=== PATIENT | female | born 1940 | race Caucasian/White ===

== ENCOUNTER 2018-11-05 06:04 | Day surgery (SDC) | payer MEDICARE ==
[~2018-11-05] VITALS: Ht 154.9 cm; Wt 93.4 kg
[~2018-11-05 06:04] MED LIST: ALLEGRA180 MG PO; BIOTIN MAXI10000 MC1; CALCIUM 600 + D1 TAB; CALCIUM/D600 M2 PO; CARVEDILOL3.125 MG PO; FERREX 150150 MG PO; LEXAPRO5 MG PO; LOSARTAN POT50 MG PO; MULTI VIT PO; NEURONTIN600 MG PO; PANTOPRAZOLE SO40 MG PO; SIMVASTATIN40 MG PO; TRAMADOL HYDROC50 MG PO
[2018-11-05 09:03] VITALS: BP 115/56
== END 2018-11-05 09:15 | disposition home or self-care (01) ==
LOC: ENDO 06:04 → ORM 18:30
PROVIDERS: ATTEND Internal Medicine Gastroenterology
PROC: 0DBK8ZX Excision of Ascending Colon, Via Natural or Artificial Opening Endoscopic, Diagnostic (ICD-10-PCS; principal; 2018-11-05)
PROC: 0DBP8ZX Excision of Rectum, Via Natural or Artificial Opening Endoscopic, Diagnostic (ICD-10-PCS; 2018-11-05)
PROC: 0DBL8ZX Excision of Transverse Colon, Via Natural or Artificial Opening Endoscopic, Diagnostic (ICD-10-PCS; 2018-11-05)
PROC: 0DB48ZX Excision of Esophagogastric Junction, Via Natural or Artificial Opening Endoscopic, Diagnostic (ICD-10-PCS; 2018-11-05)
PROC: 0DB78ZX Excision of Stomach, Pylorus, Via Natural or Artificial Opening Endoscopic, Diagnostic (ICD-10-PCS; 2018-11-05)
PROC: 0DB78ZX Excision of Stomach, Pylorus, Via Natural or Artificial Opening Endoscopic, Diagnostic (ICD-10-PCS; 2018-11-05)
DX: K57.30 Diverticulosis of large intestine without perforation or abscess without bleeding (principal); D12.2 Benign neoplasm of ascending colon; D12.3 Benign neoplasm of transverse colon; K62.1 Rectal polyp; K64.8 Other hemorrhoids; K64.4 Residual hemorrhoidal skin tags; R13.10 Dysphagia, unspecified; K44.9 Diaphragmatic hernia without obstruction or gangrene; K31.7 Polyp of stomach and duodenum; K21.0 Gastro-esophageal reflux disease with esophagitis; K25.9 Gastric ulcer, unspecified as acute or chronic, without hemorrhage or perforation; K29.60 Other gastritis without bleeding; I10 Essential (primary) hypertension; Z86.010 Personal history of colon polyps

== ENCOUNTER 2019-03-18 09:33 | Day surgery (SDC) | payer MEDICARE ==
[~2019-03-18] VITALS: Ht 154.9 cm; Wt 95.3 kg
[2019-03-18 11:31] VITALS: BP 133/62
== END 2019-03-18 11:39 | disposition home or self-care (01) ==
LOC: ENDO 09:33 → ORM 15:40 → ENDO 15:40 → ORM 18:30
PROVIDERS: ATTEND Internal Medicine Gastroenterology
PROC: 0DB48ZX Excision of Esophagogastric Junction, Via Natural or Artificial Opening Endoscopic, Diagnostic (ICD-10-PCS; principal; 2019-03-18)
PROC: 0DB78ZX Excision of Stomach, Pylorus, Via Natural or Artificial Opening Endoscopic, Diagnostic (ICD-10-PCS; 2019-03-18)
DX: K31.7 Polyp of stomach and duodenum (principal); K29.70 Gastritis, unspecified, without bleeding; K21.9 Gastro-esophageal reflux disease without esophagitis; K44.9 Diaphragmatic hernia without obstruction or gangrene; I10 Essential (primary) hypertension; Z79.899 Other long term (current) drug therapy; Z87.11 Personal history of peptic ulcer disease